=== PATIENT | female | born 1965 | race Caucasian/White ===

== ENCOUNTER 2023-08-18 00:40 | Day surgery (SDC) | payer BC, SELFPAY ==
[2023-08-07 16:14] VITALS: BMI 26.7
--- NOTE | 2023-08-18 09:59 | PM.HPGS ---
History of Present Illness History of Present Illness Consent: Risks, benefits, and alternatives have been discussed and questions answered. Patient agrees to proceed with procedure. Chief complaint: Family Hx of Colon Ca, Epigastric Pain Narrative: Lisa Carbajal is a 57 year old female Referred for colon cancer screening. She has a strong family history of colon cancer, her mother and both maternal grandparents. she is also wanting a 2nd opinion regarding the epigastric pain she is having. Previously saw Dr. Hutchinson.? Past medical history including GERD, hypothyroidism, hyperlipidemia, neuropathy, cholecystectomy, bilateral oophorectomy, right inguinal hernia repair and recent left hand surgery yesterday.? She states either in 2019 or 2020 she was repairing her deck and as she was lifting up something she heard a pop in her epigastric region which then prompted CT of the chest-CT of the chest showed mild thickening of the esophagus and a moderate diverticulum in the posterior aspect at the fundus of the stomach that had an air-fluid level measuring 4.0 x 3.6 cm-she had a follow-up EGD with Dr. Hutchinson for this and she was told it was ?normal?. I don't have the report to review.? She continues to have intermittent epigastric abdominal pain that feels like a stabbing sensation that radiates into her back. This sensation is there more often than not. Review of Systems Review of Systems: All systems reviewed & are unremarkable except as noted in HPI and below PMFSH Past Medical History Medical History Abnormal digestive system diagnostic imaging Epigastric pain Family hx of colon cancer GERD (gastroesophageal reflux disease) Obesity Stomach diverticulum Family History Family History Father Diabetes mellitus Heart disease Mother Breast cancer Social History Social History Years smoked: 10 Smoking status: Former smoker Second hand tobacco smoke exposure: No Alcohol intake: never Substance use: never Substance use type: does not use Living arrangements: with family Occupation/Education: retired Spiritual care concerns: No Meds Home Medications and Allergies Home Medications Medication Instructions Recorded Confirmed Type cyanocobalamin (vitamin B-12) 1,000 mcg PO DAILY 07/08/23 08/18/23 History 1,000 mcg capsule gabapentin 300 mg capsule 300 mg PO DAILY 07/08/23 08/18/23 History levothyroxine 50 mcg capsule 50 mcg PO DAILY 07/08/23 08/18/23 History omeprazole 20 mg capsule,delayed 20 mg PO DAILY 07/08/23 08/18/23 History release rosuvastatin 10 mg tablet 10 mg PO DAILY 07/08/23 08/18/23 History multivitamin 1 tablet PO DAILY 08/07/23 08/18/23 History Allergies Allergy/AdvReac Type Severity Reaction Status Date / Time ibuprofen Allergy Intermediate HIVES Verified 08/18/23 10:17 Exam Resp: Auscultation: clear to auscultation bilaterally Cardio: Rate: regular rate Rhythm: regular rhythm GI: GI Palp: Yes Soft to palpation and No Tenderness to palpation present (GI) Assessment and Plan Assessment and plan (1) Family hx of colon cancer: Code(s): Z80.0 - Family history of malignant neoplasm of digestive organs Status: Acute Assessment and Plan: Colonoscopy with possible biopsy or polypectomy or cautery or injection of substances. (2) Epigastric pain: Code(s): R10.13 - Epigastric pain Status: Acute Assessment and Plan: EGD with possible biopsy or dilatation or cautery. Plan Screening Colonoscopy with possible biopsy or polypectomy or cautery or injection of substances.
[2023-08-18] MEDS: LACTATED RINGERS 1,000 ML 150 ML IV CONT (10:33)
--- NOTE | 2023-08-18 10:33 | WPDANESEPPF ---
Anes - Initial Pre Proc Eval Procedure: Operation Date: 08/18/23 11:15 Proposed Procedures p Esophagogastroduodenoscopy & Colonoscopy - Shekhar Arana MD Date/Time: 08/18/23 10:33 Surgeon: Shekhar Arana MD Pre Op Diagnosis: Family Hx of Colon Ca, Epigastric Pain Patient Data Age: 57 Gender: F Height: 1.65 m Weight: 73 kg Allergies Allergy/AdvReac Type Severity Reaction Status Date / Time ibuprofen Allergy Intermediate HIVES Verified 08/18/23 10:17 Home Medications Medication Instructions Recorded Confirmed Type cyanocobalamin (vitamin B-12) 1,000 mcg PO DAILY 07/08/23 08/18/23 History 1,000 mcg capsule gabapentin 300 mg capsule 300 mg PO DAILY 07/08/23 08/18/23 History levothyroxine 50 mcg capsule 50 mcg PO DAILY 07/08/23 08/18/23 History omeprazole 20 mg capsule,delayed 20 mg PO DAILY 07/08/23 08/18/23 History release rosuvastatin 10 mg tablet 10 mg PO DAILY 07/08/23 08/18/23 History multivitamin 1 tablet PO DAILY 08/07/23 08/18/23 History Patient hx anesthesia problems: none Family hx anesthesia problems: none Results Review: All pre-operative results and documents have been reviewed as part of the pre-operative evaluation. [facility] Past Medical History Medical History Abnormal digestive system diagnostic imaging Epigastric pain Family hx of colon cancer GERD (gastroesophageal reflux disease) Obesity Stomach diverticulum Family History Family History Father Diabetes mellitus Heart disease Mother Breast cancer Social History Social History Years smoked: 10 Smoking status: Former smoker Second hand tobacco smoke exposure: No Alcohol intake: never Substance use: never Substance use type: does not use Living arrangements: with family Occupation/Education: retired Spiritual care concerns: No Anes - Eval Final PreProcedure Day of Procedure 08/18/23 10:33 Patient weight: normal Heart: regular rate and rhythm Lungs: clear to auscultation Airway: Mallampati scale class II Neurological: alert and oriented Last oral intake: >/= 8 hours ASA classification: II Emergent: no Anesthetic plan: proceed Anesthesia type and monitoring: general GIVS and standard monitoring Results Review: All pre-operative results and documents have been reviewed as part of the pre-operative evaluation. Informed Consent: The patient's anesthetic plan and its attendant risks and benefits were discussed with the patient/family/POA. Questions were solicited and answers provided to the satisfaction of the patient/family/POA.
[2023-08-18 10:34] VITALS: BP 138/82; PULSE 64; RESP 18; TEMP 36.3; O2SAT 100; BMI 26.2
--- NOTE | 2023-08-18 10:52 | SUR.OPER ---
EGD START: 1042; END: 1045. COLONOSCOPY START: 1052; END: 1101.
[2023-08-18 11:06] VITALS: BP 104/61; PULSE 63; RESP 18; O2SAT 100
[2023-08-18 11:16] VITALS: BP 126/83; PULSE 60; RESP 16; O2SAT 100
[2023-08-18 11:26] VITALS: BP 128/79; PULSE 62; RESP 16; O2SAT 100
== END 2023-08-18 11:35 | disposition home or self-care (01) ==
PROVIDERS: PCP Family Medicine Sports Medicine; Visit Provider Internal Medicine Gastroenterology
PROC: 0DJ08ZZ Inspection of Upper Intestinal Tract, Via Natural or Artificial Opening Endoscopic (ICD-10-PCS; CPT 43235; principal; 2023-08-18 11:15)
DX: Z12.11 Encounter for screening for malignant neoplasm of colon (principal); K31.4 Gastric diverticulum; K31.7 Polyp of stomach and duodenum; K57.30 Diverticulosis of large intestine without perforation or abscess without bleeding; K64.8 Other hemorrhoids; K21.9 Gastro-esophageal reflux disease without esophagitis; E03.9 Hypothyroidism, unspecified; Z82.49 Family history of ischemic heart disease and other diseases of the circulatory system; Z80.3 Family history of malignant neoplasm of breast; Z87.891 Personal history of nicotine dependence; Z80.0 Family history of malignant neoplasm of digestive organs
CPT/HCPCS: 43239; 45378; 87081; 88305; J2001; J2704; J7120

== ENCOUNTER 2023-08-27 07:19 | Outpatient (CLI) | payer BC, SELFPAY ==
--- NOTE | ~2023-08-27 | CT_ITS ---
CT of the Abdomen and Pelvis: Indication: Abdominal pain Technique: 2.5 mm axial scans were obtained through the abdomen and pelvis following intravenous adm inistration of 100 cc of Omnipaque 350. Dose reduction technique was used on this scan by utilizing a utomated exposure control and iterative reconstruction technique. The dose-length product (DLP) was 4 94.55 mGy-cm. Findings: Scans through the lung bases are unremarkable. The liver, spleen, pancreas, adrenals and kidneys are within normal limits. Cholecystectomy clips are present. No evidence of aortic aneurysm. No lymphadenopathy. No bowel obstruction or bowel wall thickening. There is no evidence to suggest acute appendicitis. Images through the pelvis were performed. Urinary bladder unremarkable. No pelvic mass seen. No ascit es. Impression: No significant abnormalities seen. Reviewed, dictated and finalized at [facility]. H AGENT Impression: No significant abnormalities seen.
== END 2023-08-27 07:20 | disposition home or self-care (01) ==
PROVIDERS: PCP Family Medicine Sports Medicine; Visit Provider Internal Medicine Gastroenterology
DX: R10.13 Epigastric pain (principal)
CPT/HCPCS: 74177; Q9967

== ENCOUNTER 2023-12-19 03:27 | Day surgery (SDC) | payer BC, SELFPAY ==
[2023-12-15 12:15] VITALS: BMI 25.8
--- NOTE | 2023-12-15 12:19 | PC.NURSE ---
Report to the Outpatient Waiting Room, entrance under the green pavilion located off [facility], at time 6:00 on date 12/19/23. Planned Procedure Time: 7:30. Time changes happen often and if your time is changed the preop area will call you the afternoon before. - You and your visitor will be asked to self-screen and do not enter if you have any COVID symptoms. - A mask is optional within the hospital at this time. Patients may have clear liquids (water, carbonated beverages, clear teas, apple juice) until 3 hours prior to surgery with a maximum of 20 ounces. - No food from midnight until time of surgery Take the following medications with a SIP of water the morning of surgery: GABAPENTIN, LEVOTHYROXINE DO NOT STOP ANY OF YOUR OTHER PRESCRIPTION MEDICATIONS PRIOR TO SURGERY ?EXCEPT THE FOLLOWING Medications to discontinue per physician: VITAMINS/SUPPLEMENTS Date to take last dose: 12/15/23 Please no make-up, nail dominican, hairspray, perfume, deodorant, or body powder the day of surgery. No jewelry (including any body piercings) or valuables the day of surgery, leave them at home. Please take a shower or bath the night before, or the morning of, surgery with an antibacterial soap. Wear comfortable, loose fitting clothing. - Jewelry must be removed prior to entering the operating room. Rings and piercings that are not removed may be cut off. - The hospital will not accept responsibility for valuables. - Please leave all valuables, including medications, at home the day of surgery. If you are going home after surgery, a licensed cryogenic transport driver must drive you home. - NO public transportation without another adult if you receive anesthesia. - We recommend that an adult stay with you for 24 hours following discharge. - We also recommend that you do not drive, make important decision, drink alcoholic beverages, or take any drugs that were not prescribed by your health care provider for at least 24 hours after your discharge time. Follow any additional instructions given to you from your surgeon. If you or anyone in your household have experienced Covid symptoms in the past week, please notify your surgeon or the nurse liaison at the phone number below for possible testing. Telephone instructions given to PT - DIEGO HENDERSON and asked if any additional questions and then verbalized understanding. Patient advised to call surgeon office or pre surgery nurse liaison [phone] if any additional questions.
[2023-12-19] VITALS (7 sets, daily range): BP systolic 113–150; BP diastolic 66–94; PULSE 62–84; RESP 12–16; TEMP 36.1; O2SAT 96–100
--- NOTE | ~2023-12-19 | XR_ITS ---
EXAMINATION: XR surgery orthopedic DATE: 12/19/2023 08:42 INDICATION: Arthrodesis in the right foot TECHNIQUE: 3 fluoroscopic images of the right forefoot were obtained during procedure performed by Dr Stephanie Flood. Radiologist was not present for the imaging or procedure. The amount of fluoroscopy time used during this procedure was 0.2 minutes. COMPARISON: None. FINDINGS: Initial image demonstrates a first metatarsophalangeal arthrodesis with compression screw and dorsal plate-screw fixation. Subsequent images demonstrate contrast entering with screw fixation at the head /neck of the second metatarsal. Alignment remains essentially anatomic. No fractures identified. Join t spaces appear relatively preserved. IMPRESSION: 1. Fluoroscopy utilized during a right first metatarsophalangeal arthrodesis and likely shortening os teotomy at the head/neck the second metatarsal. See procedure note for further detail. Reviewed, dictated and finalized at [facility] IMPRESSION: 1. Fluoroscopy utilized during a right first metatarsophalangeal arthrodesis an d likely shortening osteotomy at the head/neck the second metatarsal. See proce dure note for further detail.
--- NOTE | 2023-12-19 06:37 | ECG_ITS ---
Measurements Intervals [place] Rate: 60 P: 55 MD: 170 QRS: 24 QRSD: 97 T: 31 QT: 418 QTc: 418 Interpretive Statements SINUS RHYTHM BORDERLINE ST-T WAVE ABNORMALITY- ANTERIOR LEADS BORDERLINE ECG NO PREVIOUS ECG AVAILABLE FOR COMPARISON Electronically Signed On 12-19-2023 7:07:51 SKIP TRACER by Papi King D.O.
[2023-12-19] MEDS: LACTATED RINGERS 1,000 ML 30 ML IV CONT (06:45)
--- NOTE | 2023-12-19 07:11 | WPDHPUPDATE1 ---
History and Physical Update Update Date/Time: 12/19/23 07:11 History and Physical has been reviewed, including an updated exam of the patient. There are NO changes in the patient's condition. Risks, benefits, and alternatives have been discussed and questions answered. Patient agrees to proceed with procedure.
--- NOTE | 2023-12-19 07:24 | WPDANESEPPF ---
Anes - Initial Pre Proc Eval Procedure: Operation Date: 12/19/23 07:30 Proposed Procedures p Arthrodesis of First Metatarsal Phalangeal Joint Right Foot, Toni Shortening Second Metatarsal, Osteotomy Right Foot, Possible Second Intermetatarsal Neuroma Release or Excision - John Flood JR, MD Date/Time: 12/19/23 07:24 Surgeon: John Flood JR, MD Pre Op Diagnosis: Right foot bunion,metatarsalgia,neuroma Patient Data Age: 58 Gender: F Height: 1.68 m Weight: 72.6 kg Allergies Allergy/AdvReac Type Severity Reaction Status Date / Time ibuprofen Allergy Intermediate HIVES Verified 12/15/23 12:14 peanut Allergy Migraine Verified 12/15/23 12:14 Home Medications Medication Instructions Recorded Confirmed Type cyanocobalamin (vitamin B-12) 1,000 mcg PO DAILY 07/08/23 12/15/23 History 1,000 mcg capsule gabapentin 300 mg capsule 300 mg PO DAILY 07/08/23 12/15/23 History levothyroxine 50 mcg capsule 50 mcg PO DAILY 07/08/23 12/15/23 History omeprazole 20 mg capsule,delayed 20 mg PO DAILY 07/08/23 12/15/23 History release rosuvastatin 10 mg tablet 10 mg PO DAILY 07/08/23 12/15/23 History multivitamin 1 tablet PO DAILY 08/07/23 12/15/23 History Patient hx anesthesia problems: none Family hx anesthesia problems: none Results Review: All pre-operative results and documents have been reviewed as part of the pre-operative evaluation. [facility] Past Medical History Medical History Abnormal digestive system diagnostic imaging Epigastric pain Family hx of colon cancer GERD (gastroesophageal reflux disease) Obesity Stomach diverticulum Surgical History Surgical History (Updated 12/19/23 @ 07:24 by Jean Claude Long MD) H/O arthroscopic knee surgery H/O: hysterectomy History of cholecystectomy Family History Family History Father Diabetes mellitus Heart disease Mother Breast cancer Social History Social History Years smoked: 10 Smoking status: Never smoker Second hand tobacco smoke exposure: No Alcohol intake: never Substance use: never Substance use type: does not use Living arrangements: with family Occupation/Education: retired Spiritual care concerns: No Anes - Eval Final PreProcedure Day of Procedure 12/19/23 07:24 Patient weight: overweight Heart: regular rate and rhythm Lungs: clear to auscultation Airway: Mallampati scale class II Neurological: alert and oriented Last oral intake: >/= 8 hours ASA classification: II Emergent: no Anesthetic plan: proceed Anesthesia type and monitoring: general LMA and standard monitoring Results Review: All pre-operative results and documents have been reviewed as part of the pre-operative evaluation. Informed Consent: The patient's anesthetic plan and its attendant risks and benefits were discussed with the patient/family/POA. Questions were solicited and answers provided to the satisfaction of the patient/family/POA.
--- NOTE | 2023-12-19 07:25 | WPDANESPNB ---
Anes - Peripheral Nerve Block Date/Time: 12/19/23 07:25 I have discussed with the patient/family/POA the placement of a peripheral nerve block for post-operative pain management, including associated risks, benefits, complications, and side effects. Alternative methods of post-operative analgesia were detailed. Questions were solicited and answers provided to the satisfaction of the patient/family/POA. Time-Out: A pre-procedural Time-Out was completed immediately before starting the procedure and confirmed: Patient Identification, Site, Procedure, Patient Position and the Availability of Requisite Equipment. Clinical Indications: Acute post-operative pain management requested by the operative surgeon. Nerve Block Insertion Note Anes-nerve block: posterior fossa sciatic right and other (saphenous right) Patient position: supine Skin prep: chlorhexidine Needle: 22 gauge, stimulating, insulated echogenic needle. Needle length: 80 mm Technique: nerve stimulation lost at (mA) (0.4) Injectate: bupivacaine 0.5% with epi 5 mcg/ml (23cc sciatic, 8cc saphenous) and dexamethasone (mg) (8) Observations: tolerated well Complications: none Procedure start time:: 719 Procedure end time:: 724
[2023-12-19] MEDS: ceFAZolin 2 GM/D5W 50 ML 2 GM/50 ML BAG IVPB (07:28)
--- NOTE | 2023-12-19 08:50 | W.PM.PROC2 ---
Procedure Note - Detailed Date of Procedure 12/19/23 Pre-op Diagnosis 1. Right foot arthritic bunion deformity 2. Metatarsalgia sub second metatarsal head right foot 3. Neuroma right 2nd intermetatarsal space Post-op Diagnosis Same Procedure Performed 1. Arthrodesis of the first metatarsal phalangeal joint right foot 2. Toni shortening second metatarsal osteotomy right foot 3. Second intermetatarsal neuroma release Surgeon John Flood JR, EVONNE Anesthesia General and Regional Indications Painful right forefoot Description of Procedure PROCEDURE IN DETAIL: Under mild sedation, the patient was brought into the operating room, placed on the operating table in supine position. A pneumatic ankle tourniquet was placed about the patient's ipsilateral ankle. Following general anesthesia and a popliteal fossa block, the foot was then scrubbed, prepped, and draped in the usual aseptic manner. An Esmarch bandage was then used to exsanguinate the patient's foot and the pneumatic ankle tourniquet was then inflated. Surgery began in the following manner: Attention was directed to the dorsal medial aspect of the 1st metatarsophalangeal joint where there was a moderate subcutaneous prominence was noted. The incision was made starting along the central shaft of the 1st metatarsal and extending just proximal to the interphalangeal joint of the hallux. The incision was continued deep down through the subcutaneous tissues using sharp and blunt dissection. All bleeders were cauterized as necessary. At this point, the dissection was continued down to the level of the periosteum and capsular structures overlying the 1st metatarsophalangeal joint. A full length periosteum and capsular incision was made just medial to the extensor hallucis longus tendon. The periosteum and capsular structures were freed from the base of the proximal phalanx as well as the distal 1st metatarsal. At this point, the 1st metatarsophalangeal joint was identified. There was loss of articular cartilage to the head of the 1st metatarsal as well as the base of the proximal phalanx worse centrally and medially. There was significant broadening and hypertrophy of the 1st metatarsophalangeal joint. Utilizing a sagittal bone saw, the hypertrophied 1st metatarsal was resected dorsally, medially, and laterally. A power bur was used to make sure that there were no rough edges and also to further debride the hypertrophic 1st metatarsal. Next, a rongeur was used to resect the hypertrophic base of the proximal phalanx. At this point, the reamer system for the Maxforce plaste system was used to denude the degenerative cartilage from the head of the 1st metatarsal as well as the base of the proximal phalanx. The cartilage and subchondral bone were fully debrided utilizing the reamer system until healthy bleeding bone was noted. Next, a 2-0 drill bit was used to further fenestrate the head of the 1st metatarsal as well as the base of the proximal phalanx in order to allow fusion across the 1st metatarsophalangeal joint. Next, a guide wire for a Arthrex 3.5 Crossscrew headless compression screw was driven from the medial aspect of the base of the proximal phalanx into the head of the 1st metatarsal in order to serve as temporary fixation, next the cannulated screw was driven and provided excellent compression. Next A large steel plate was used to make sure that the hallux was in a rectus position both in the sagittal plane as well as the frontal plane. Excellent position of the hallux was noted. Next, a Maxforce plate was placed atop the 1st metatarsophalangeal joint held in position with Garfield wires. Utilizing standard principles and techniques, the distal drill holes were drilled and three 3.0 mm mm fully-threaded locking screws were driven from dorsal to plantar holding the distal aspect of the plate intact. At this point, the Maxforce compression system was utilized from dorsal distal
[2023-12-19] MEDS: oxyCODONE HCL (*CRX) 5 MG TAB IR PO (10:28)
== END 2023-12-19 10:30 | disposition home or self-care (01) ==
PROVIDERS: PCP Family Medicine Sports Medicine; Visit Provider Podiatrist Foot & Ankle Surgery
PROC: (CPT 28750; principal; 2023-12-19 07:30)
DX: M21.611 Bunion of right foot (principal); M20.11 Hallux valgus (acquired), right foot; M19.071 Primary osteoarthritis, right ankle and foot; K31.4 Gastric diverticulum; G89.18 Other acute postprocedural pain; Z98.890 Other specified postprocedural states; Z90.49 Acquired absence of other specified parts of digestive tract; Z80.0 Family history of malignant neoplasm of digestive organs; Z82.49 Family history of ischemic heart disease and other diseases of the circulatory system; Z80.3 Family history of malignant neoplasm of breast
CPT/HCPCS: 64445; 64450; 28750; 28308; 28899; 93005; 99199; A9270; C1713; C1769; J0690; J1100; J2250; J2405; J2704; J3010; J7120